=== PATIENT | male | born 1960 | race Caucasian/White ===

== ENCOUNTER 2018-10-26 13:10 | Emergency (ER) | payer SELFPAY ==
[~2018-10-26] VITALS: Ht 160 cm; Wt 72.3 kg
[2018-10-26 13:19] VITALS: BP 159/86
[2018-10-26] MEDS ORDERED: LIDOCAINE HCL/PF 1% 10 MG/ML 5ML VIAL IJ ONE (14:15)
[2018-10-26] MEDS ORDERED: BACITRACIN ZINC OINT UDPKT TOP ONE (14:15)
== END 2018-10-26 15:21 | disposition home or self-care (01) ==
LOC: ER 14:19
DX: S61.012A Laceration without foreign body of left thumb without damage to nail, initial encounter (principal); W26.8XXA Contact with other sharp object(s), not elsewhere classified, initial encounter; Y93.H2 Activity, gardening and landscaping; Y92.017 Garden or yard in single-family (private) house as the place of occurrence of the external cause
CPT/HCPCS: 12001; 99283

== ENCOUNTER 2018-11-12 11:04 | Emergency (ER) | payer SELFPAY ==
[~2018-11-12] VITALS: Ht 152.4 cm; Wt 66.0 kg
[2018-11-12] MEDS ORDERED: IBUPROFEN 600MG TABLET PO ONE (13:15)
[2018-11-12 13:21] VITALS: BP 134/84
== END 2018-11-12 13:21 | disposition home or self-care (01) ==
LOC: ER 11:04
DX: S61.012D Laceration without foreign body of left thumb without damage to nail, subsequent encounter (principal); X58.XXXD Exposure to other specified factors, subsequent encounter
CPT/HCPCS: 99282